=== PATIENT | male | born 1995 ===

== ENCOUNTER 2016-12-07 01:41 | Emergency (ER) | payer SELFPAY ==
[2016-12-07 02:02] VITALS: TEMP 98.7; O2SAT 99
--- NOTE | 2016-12-07 02:21 | C.PDOC ---
Time Seen by Provider: 12/07/16 02:06 Chief Complaint (Nursing): Substance Abuse Past Medical History Vital Signs: Last Vital Signs Temp 98.7 F 12/07/16 01:49 Pulse 112 H 12/07/16 01:49 Resp 20 12/07/16 01:49 BP 135/80 12/07/16 01:49 Pulse Ox 99 12/07/16 01:49 - Social History Hx Alcohol Use: Yes Hx Substance Use: No - Immunization History Hx Tetanus Toxoid Vaccination: No Hx Influenza Vaccination: No Hx Pneumococcal Vaccination: No ED Course And Treatment O2 Sat by Pulse Oximetry: 99 Disposition Counseled Patient/Family Regarding: Diagnosis, Need For Followup, Rx Given - Disposition Disposition: HOME/ ROUTINE Disposition Time: 02:21 Condition: STABLE Instructions: Alcohol Intoxication (DC) Print Language: CROATIAN - POA Present On Arrival: None - Clinical Impression Clinical Impression: Alcohol intoxication
--- NOTE | 2016-12-07 02:33 | C.PDOC ---
History Of Present Illness 21 year old male brought in by EMS for acute ETOH intoxication. Patient states his sister called 911 when she saw him stumbling, hiccuping, and complaining of chest discomfort. Patient notes it [birth year] yesterday and he was out drinking. Denies physical complaints at this time. Time Seen by Provider: 12/07/16 02:06 Chief Complaint (Nursing): Substance Abuse History Per: Patient History/Exam Limitations: no limitations Onset/Duration Of Symptoms: Hrs Current Symptoms Are (Timing): Still Present Suicide/Self Injury Attempted (Context): None Modifying Factor(s): Alcohol Associated Symptoms: denies: Depression, Suicidal Thoughts, Suicidal Plan Involuntary Hold By: None Recent travel outside of the [place]: No Past Medical History Reviewed: Historical Data, Nursing Documentation, Vital Signs Vital Signs: Last Vital Signs Temp 98.7 F 12/07/16 01:49 Pulse 78 12/07/16 02:37 Resp 14 12/07/16 02:37 BP 120/80 12/07/16 02:37 Pulse Ox 99 12/07/16 02:39 - Medical History PMH: No Chronic Diseases Surgical History: No Surg Hx Family History: States: Unknown Family Hx - Social History Hx Alcohol Use: Yes Hx Substance Use: No - Immunization History Hx Tetanus Toxoid Vaccination: No Hx Influenza Vaccination: No Hx Pneumococcal Vaccination: No Review Of Systems Constitutional: Negative for: Fever, Chills Gastrointestinal: Negative for: Nausea, Vomiting, Diarrhea Physical Exam - Physical Exam Appears: Non-toxic, No Acute Distress, Other (ETOH on breath) Skin: Normal Color, Warm, Dry Head: Atraumatic, Normacephalic Eye(s): bilateral: EOMI, Other (conjunctival injection) Nose: Normal Oral Mucosa: Moist Neck: Normal ROM Chest: Symmetrical Cardiovascular: Rhythm Regular, No Murmur Respiratory: Normal Breath Sounds, No Rales, No Rhonchi, No Wheezing Gastrointestinal/Abdominal: Soft, No Tenderness Extremity: Normal ROM, No Tenderness, No Deformity, No Swelling Neurological/Psych: Oriented x3, Normal Speech Gait: Steady ED Course And Treatment O2 Sat by Pulse Oximetry: 99 (Room air) Pulse Ox Interpretation: Normal Medical Decision Making Medical Decision Making: Impression: 21 year old male with acute ETOH intoxication. Patient in no distress. He is ambulatory with readily steady gait and will discharge under care of family. Disposition Counseled Patient/Family Regarding: Diagnosis, Need For Followup - Disposition Disposition: HOME/ ROUTINE Disposition Time: 02:21 Condition: STABLE Instructions: Alcohol Intoxication (DC) Print Language: CAMBODIAN - POA Present On Arrival: None - Clinical Impression Clinical Impression: Alcohol intoxication - Scribe Statement The provider has reviewed the documentation as recorded by the Scribe Wilton Barton All medical record entries made by the Ryanibesteban were at my direction and personally dictated by me. I have reviewed the chart and agree that the record accurately reflects my personal performance of the history, physical exam, medical decision making, and the department course for this patient. I have also personally directed, reviewed, and agree with the discharge instructions and disposition.
[2016-12-07 02:39] VITALS: BP 120/80; PULSE 78; RESP 14
== END 2016-12-07 02:39 | disposition home or self-care (01) ==
LOC: C.ER 01:41
DX: F10.129 Alcohol abuse with intoxication, unspecified (principal)